=== PATIENT | female | born 1975 | race Two or more races ===

== ENCOUNTER → 2024-12-12 | Outpatient (CLI) | payer OTHER, MEDICAID, SELFPAY ==
--- NOTE | 2024-12-12 13:30 | XR_ITS ---
Examination: MRI cervical spine without intravenous contrast Date and time of exam: December 12, 2024 1427 hours INDICATIONS: Left-sided neck pain radiating to the left arm 5 years Technique: Multiple axial and sagittal sections of the cervical spine to been obtained. T2 weighted sagittal sections, TR 3, 270, TE 117 T1-weighted sagittal sections, TR 500, TE 11 T1-weighted axial sections, TR 607, TE 12, axial sections TR 18, TE 27 and T2 weighted transverse sections, TR 3920, TE 122. Findings: Cervical fusion C5-T1 Anatomic alignment Diffuse cervical disc desiccation Mild increased signal in the cervical cord C2-C3 no disc protrusion C3-C4 4 mm central cervical disc bulge, advanced right neural foraminal stenosis C4-C5 5 mm central disc protrusion, advanced right moderate left neural foraminal stenosis C5-C6 5 mm right paracentral subarticular disc with moderate bilateral neural foraminal stenosis C6-C7 mild bilateral neural foraminal stenosis C7-T1 no disc protrusion IMPRESSION: Cervical fusion with satisfactory alignment C3-C4 4 mm central cervical disc bulge advanced right neural foraminal stenosis C4-C5 5 mm central disc protrusion, advanced right moderate left neural foraminal stenosis C5-C6 5 mm right paracentral subarticular disc with moderate bilateral neural foraminal stenosis
== END | disposition home or self-care (01) ==
LOC: SMRI 13:12
PROVIDERS: PCP Family Medicine; Referring Provider Family Medicine; Visit Provider Family Medicine
DX: M48.02 Spinal stenosis, cervical region (principal); M50.31 Other cervical disc degeneration, high cervical region; M43.22 Fusion of spine, cervical region
CPT/HCPCS: 72141

== ENCOUNTER → 2025-04-23 | Outpatient (CLI) | payer OTHER, SELFPAY ==
--- NOTE | 2025-04-23 10:00 | XR_ITS ---
Examination: Screening digital mammography, bilateral Computer aided detection 3-D breast Tomosynthesis, bilateral Date and time of exam: April 23, 2025 0952 hours Compared to mammograms dating to June 01, 2020 Indication: Screening Technique: Nonmagnified MLO, CC views of the breasts to been obtained, reconstructed from 3-D Tomosynthesis images. R2 computer aided detection program utilized for evaluation of suspicious masses and/or abnormal calcifications. 3-D Tomosynthesis images obtained. Findings: The breasts are heterogeneously dense, which may obscure small masses Intact implants Grouped microcalcifications lower inner right breast anterior depth Impression: BI-RADS Category 0: Incomplete: Need additional imaging evaluation Recommend magnification spot compression films of grouped microcalcifications lower inner right breast
== END | disposition home or self-care (01) ==
PROVIDERS: Referring Provider Family Medicine; Visit Provider Family Medicine
DX: Z12.31 Encounter for screening mammogram for malignant neoplasm of breast (principal); R92.333 Mammographic heterogeneous density, bilateral breasts; Z98.82 Breast implant status; R92.0 Mammographic microcalcification found on diagnostic imaging of breast
CPT/HCPCS: 77063; 77067

== ENCOUNTER → 2025-07-17 | Outpatient (CLI) | payer OTHER, SELFPAY ==
--- NOTE | 2025-07-17 12:30 | XR_ITS ---
Examination: Breast ultrasound complete, bilateral Date and time of exam: July 17, 2025 1243 hours INDICATIONS: Benign breast cystic disease February 28, 2019 examination Technique: Real-time grayscale ultrasonographic imaging bilateral breasts, including all 4 quadrants as well as nipple retroareolar and axillary regions. Findings: Sonographic images right breast No cystic or solid mass Sonographic images left breast 6:00 cyst 5 x 3 mm No solid nodules IMPRESSION: BI-RADS Category 2: Benign findings
--- NOTE | 2025-07-17 13:30 | XR_ITS ---
Examination: Diagnostic digital mammography, unilateral, right Computer aided detection 3-D breast Tomosynthesis, unilateral Date and time of exam: July 17, 2025 1304 hours INDICATIONS: Mammogram April 23, 2025 grouped microcalcifications lower inner right breast anterior depth Technique: Nonmagnified MLO, CC views of the right breast have been obtained, reconstructed from 3-D Tomosynthesis images. R2 computer aided detection program utilized for evaluation of suspicious masses and/or abnormal calcifications. 3-D Tomosynthesis images obtained. Findings: The breast is heterogeneously dense, which may obscure small masses Grouped suspicious microcalcifications are confirmed in the retroareolar region right breast Impression: BI-RADS category 4: Suspicious for malignancy Biopsy is needed of grouped microcalcifications retroareolar region right breast to exclude breast carcinoma These calcifications are amenable to stereotactic breast biopsy for diagnosis.
== END | disposition home or self-care (01) ==
PROVIDERS: PCP Family Medicine; Referring Provider Family Medicine; Visit Provider Family Medicine
DX: R92.343 Mammographic extreme density, bilateral breasts (principal); R92.1 Mammographic calcification found on diagnostic imaging of breast
CPT/HCPCS: 76641; 77061; 77065; G0279

== ENCOUNTER → 2025-09-04 | Outpatient (CLI) | payer OTHER, MEDICAID, SELFPAY ==
[2025-09-03 12:41] LABS: Basophils # (Auto) 0.0 Thou/mm3 (0.0-0.2); Basophils % (Auto) 0 % (0-2.5); Eosinophils # (Auto) 0.1 Thou/mm3 (0.0-0.5); Eosinophils % (Auto) 1 % (0-10); Hematocrit 41.0 % (36.0-46.0); Hemoglobin 13.5 g/dL (12.0-16.0); Immature Granulocytes Auto 0.05 Thou/mm3 (0.00-0.00); Lymphocytes # (Auto) 4.3 Thou/mm3 (1.0-4.8); Lymphocytes % (Auto) 38 % (10-50); Mean Corpuscular HGB Conc 32.9 g/dl (31.0-37.0); Mean Corpuscular Hemoglobin 29.9 pg (25.0-35.0); Mean Corpuscular Volume 91 fL (80-100); Monocytes # (Auto) 0.9 Thou/mm3 (0.0-0.8); Monocytes % (Auto) 8 % (0-12); Neutrophils # (Auto) 5.9 Thou/mm3 (1.8-7.7); Neutrophils % (Auto) 53 % (37-80); Nucleated Red Blood Cell # 0.00 Thou/mm3 (0.00-0.00); Nucleated Red Blood Cell % 0 /100 WBC (0); Platelet Count 342 Thou/mm3 (140-440); RDW Standard Deviation 44.8 fL (36.4-46.3); Red Blood Count 4.51 Miln/mm3 (4.00-5.20); White Blood Count 11.2 Thou/mm3 (3.6-11.0)
[2025-09-03 12:51] LABS: HCG,Qualitative Serum Negative
[2025-09-03 14:04] LABS: INR 0.9 (0.9-1.3); Partial Thromboplastin Time 25.6 Seconds (22.0-36.0); Prothrombin Time 9.9 Seconds (9.0-12.2)
--- NOTE | 2025-09-04 08:30 | XR_ITS ---
Examination: Stereotactic guided vacuum assisted right breast biopsy with clip placement Specimen radiograph Date and time of exam: September 04, 2025, 0935 hours Dictation: Mammogram 07/17/2025 BI-RADS 4 suspicious microcalcifications retroareolar right breast Timeout performed, documenting correct patient, order, referring physician, patient's site and reason for procedure, allergies to medications Informed consent provided. Time out performed Technique: The lesion right breast was localized with a stereotactic apparatus. Local anesthesia was obtained after prepping the skin at the entrance site and applying sterile drape Maximum sterile barrier technique. 8 core biopsies were then obtained, vacuum assisted, stereotactically guided, at the lesion site. Specimens appear adequate. Stereotactic breast marker was introduced at the lesion site Estimated blood loss 2 cc. Patient tolerated the procedure well and appeared in satisfactory and stable condition at completion of the procedure Pathology report to follow Impression: Successful stereotactic breast biopsy as described above. Specimen radiograph contains the biopsied suspicious microcalcifications.
== END | disposition home or self-care (01) ==
LOC: CDIM 08:20
PROVIDERS: Radiology Diagnostic Radiology; PCP Specialist; Referring Provider Specialist; Visit Provider Specialist
DX: D24.1 Benign neoplasm of right breast (principal); N60.11 Diffuse cystic mastopathy of right breast
CPT/HCPCS: 19081; 36415; 84703; 85025; 85610; 85730; A4648; A4649